=== PATIENT | male | born 1990 | race Caucasian/White ===

== ENCOUNTER 2016-09-13 08:18 | Emergency (ER) | payer OTHER ==
[~2016-09-13] VITALS: Ht 188 cm; Wt 72.6 kg
[2016-09-13 08:22] VITALS: BP 125/75
[2016-09-13] MEDS ORDERED: ONDANSETRON 4 MG ORAL DISINTEGRATING TAB (S0181) PO ONE (08:45)
[2016-09-13] MEDS ORDERED: DICYCLOMINE 10 MG CAP PO ONE (08:45)
== END 2016-09-13 09:06 | disposition home or self-care (01) ==
LOC: M ED 08:39
DX: R11.2 Nausea with vomiting, unspecified (principal); R19.7 Diarrhea, unspecified

== ENCOUNTER 2016-12-10 10:18 | Emergency (ER) | payer OTHER ==
[~2016-12-10] VITALS: Ht 188 cm; Wt 77.3 kg
[2016-12-10] MEDS ORDERED: TRAZ50TA11 PO (10:30)
[2016-12-10] MEDS ORDERED: IBUPROFEN 800 MG TAB PO ONE (11:15)
[2016-12-10] MEDS ORDERED: METHOCARBAMOL 500 MG TAB PO ONE (11:15)
[2016-12-10] MEDS ORDERED: NORCO, ANEXSIA 5/325MG TABLET (HYDROcodone/ACETAMINOPHEN) PO ONE (11:15)
[2016-12-10 12:29] VITALS: BP 135/75
[2016-12-10] MEDS ORDERED: ROBA500T PO (12:31)
[2016-12-10] MEDS ORDERED: NORCOTAB PO (12:31)
[2016-12-10] MEDS ORDERED: IBUP80TA PO (12:31)
--- NOTE | 2016-12-10 12:31 | REP ---
Sacrum and coccyx three views: The sacroiliac articulations are unremarkable. The sacral ala and foramen are unremarkable. There is no fracture or dislocation. Mineralization is normal. Impression: Essentially negative sacrum and coccyx. No fracture is identified. If there is continuing clinical concern consider follow-up MRI or CT. Signed by Luisito Stovall MD 12/10/2016 12:23 P
== END 2016-12-10 12:40 | disposition home or self-care (01) ==
LOC: M ED 10:18
DX: S30.0XXA Contusion of lower back and pelvis, initial encounter (principal); X50.1XXA Overexertion from prolonged static or awkward postures, initial encounter; Y92.099 Unspecified place in other non-institutional residence as the place of occurrence of the external cause; Y93.89 Activity, other specified; Y99.9 Unspecified external cause status